=== PATIENT | female | born 1960 ===

== ENCOUNTER 2023-12-13 10:46 | Outpatient (CLI) | payer MEDICARE, SELFPAY ==
--- NOTE | ~2023-12-13 | XR_ITS ---
Right Knee Technique: AP and lateral views were obtained. Clinical History: Pain Findings: No fracture or dislocation is seen. Osseous alignment is anatomic. There is mild tricompart mental degenerative change. Soft tissues are unremarkable. No joint effusion is seen. Impression: Mild tricompartmental degenerative change. Reviewed, dictated and finalized at [facility]. [employer] INTAKE TECHNICIAN Impression: Mild tricompartmental degenerative change.
--- NOTE | ~2023-12-13 | XR_ITS ---
Left Knee Technique: AP and lateral views were obtained. Clinical History: Pain Findings: No fracture or dislocation is seen. Osseous alignment is anatomic. There is moderate tricom partmental degenerative change and spurring. Soft tissues are unremarkable. No joint effusion is seen . Impression: Moderate tricompartmental degenerative change. Reviewed, dictated and finalized at [facility]. [employer] MARKETING COORDINATOR Impression: Moderate tricompartmental degenerative change.
== END 2023-12-13 10:47 | disposition home or self-care (01) ==
PROVIDERS: PCP Nurse Practitioner Family; Visit Provider Nurse Practitioner Family
DX: M17.0 Bilateral primary osteoarthritis of knee (principal)
CPT/HCPCS: 73560